=== PATIENT | female | born 1990 | race Hispanic/Latino ===

== ENCOUNTER 2022-01-27 21:53 | Observation (INO) | payer OTHER, MEDICAID ==
[~2022-01-27] VITALS: Ht 160 cm; Wt 93.0 kg
[2022-01-27 21:54] VITALS: BP 134/79
[2022-01-28] MEDS ORDERED: GUAIFENESIN-DM 200/20 MG 10 ML PO ONE
[2022-01-28] MEDS ORDERED: ACETAMINOPHEN 325 MG TAB PO ONE
== END 2022-01-28 00:35 ==
LOC: EDH 21:53 → LDH 21:54 → EDH 22:09
PROVIDERS: ADMIT Obstetrics & Gynecology; ATTEND Obstetrics & Gynecology
DX: O26.893 Other specified pregnancy related conditions, third trimester (principal); Z20.822 Contact with and (suspected) exposure to COVID-19; R05.9 Cough, unspecified; O21.2 Late vomiting of pregnancy; Z3A.29 29 weeks gestation of pregnancy; Z79.899 Other long term (current) drug therapy
CPT/HCPCS: 87635; 87804 ×2; G0378 ×3; G0379

== ENCOUNTER 2022-02-12 21:58 | Observation (INO) | payer OTHER, MEDICAID ==
[~2022-02-12] VITALS: Ht 160 cm; Wt 95.3 kg
[2022-02-12 22:01] VITALS: BP 123/76
[2022-02-12 22:46] LABS: APPEARANCE,URINE Cloudy (CLEAR); BILIRUBIN,URINE Negative (NEGATIVE); COLOR,URINE Yellow (YELLOW); GLUCOSE, URINE (UA) Negative (NEGATIVE); KETONES,URINE Trace mg/dL (NEGATIVE); LEUKOCYTE ESTERASE ,URINE Moderate (NEGATIVE); NITRATE,URINE Negative (NEGATIVE); OCCULT BLOOD,URINE Negative (NEGATIVE); PH,URINE 6.5 (5.0-8.0); PROTEIN,URINE Negative (NEGATIVE)
[2022-02-12 22:54] LABS: AMPHET/METH SCREEN,URINE NEGATIVE (NEGATIVE); BARBITURATE SCREEN, URINE NEGATIVE (NEGATIVE); BENZODIAZEPINES SCREEN,URINE NEGATIVE (NEGATIVE); CANNABINOID SCREEN,URINE NEGATIVE (NEGATIVE); COCAINE SCREEN,URINE NEGATIVE (NEGATIVE); OPIATE SCREEN,URINE NEGATIVE (NEGATIVE); PHENCYCLIDINE SCREEN,URINE NEGATIVE (NEGATIVE)
[2022-02-12] MEDS ORDERED: ACETAMINOPHEN 325 MG TAB ONE (23:19)
[2022-02-12] MEDS ORDERED: MAG/ALUM/SIMETH 30 ML UDCUP ONE (23:19)
[2022-02-12] MEDS ORDERED: ACETAMINOPHEN 325 MG TAB PO ONE (23:30)
[2022-02-12] MEDS ORDERED: MAGNESIUM HYDROXIDE 30 ML/UDCUP PO SCH (23:30)
[2022-02-12 23:36] LABS: RBC,URINE 0-1 /HPF (0-1)
[2022-02-12 23:37] LABS: SQUAMOUS EPITHELIAL CELL,UR Moderate /HPF (0-2); TRICHOMONAS,URINE Few /LPF (None Seen)
[2022-02-12 23:38] LABS: AMORPHOUS SEDIMENT,UR Rare /LPF (None Seen)
[2022-02-12 23:40] LABS: BACTERIA,URINE Moderate /HPF (None Seen); CALCIUM OXALATE CRYSTALS,UR Few /LPF (None Seen)
== END 2022-02-13 ==
LOC: EDH 21:58 → LDH 21:59 → EDH 22:12
PROVIDERS: ADMIT Obstetrics & Gynecology; ATTEND Obstetrics & Gynecology
DX: O60.03 Preterm labor without delivery, third trimester (principal); O99.613 Diseases of the digestive system complicating pregnancy, third trimester; K59.00 Constipation, unspecified; O26.893 Other specified pregnancy related conditions, third trimester; R51.9 Headache, unspecified; Z3A.31 31 weeks gestation of pregnancy
CPT/HCPCS: 80305; 81001; 87088; G0378 ×2; G0379

== ENCOUNTER 2022-03-07 03:53 | Emergency (ER) | payer OTHER, MEDICAID ==
[~2022-03-07] VITALS: Ht 160 cm; Wt 93.9 kg
[2022-03-07 05:17] VITALS: BP 131/80
[2022-03-07] MEDS ORDERED: ACETAMINOPHEN 500 MG TABLET PO ONE (05:30)
[2022-03-07] MEDS ORDERED: ACET325T51 PO (05:42)
== END 2022-03-07 06:06 | disposition home or self-care (01) ==
LOC: EDH 03:53
DX: O26.893 Other specified pregnancy related conditions, third trimester (principal); T59.811A Toxic effect of smoke, accidental (unintentional), initial encounter; R51.9 Headache, unspecified; Z3A.33 33 weeks gestation of pregnancy; Y92.89 Other specified places as the place of occurrence of the external cause